=== PATIENT | female | born 1970 | race Caucasian/White ===

== ENCOUNTER → 2017-09-02 12:17 | Outpatient (CLI) | payer OTHER, SELFPAY ==
--- NOTE | 2017-09-02 12:20 | BI_ITS ---
MAMMOGRAPHY - BILATERAL SCREENING 3-D ROSA SYNTHESIS REASON FOR EXAM: Female, 47 years old. Bilateral Screening 3-D tomosynthesis PERTINENT HISTORY: No significant family history. TECHNIQUE: 2-D mammograms and 3-D Rosa synthesis of the breast (s) were performed. CAD was performed. COMPARISON: March 27, 2016. FINDINGS: The breast composition is heterogeneously dense that can obscure small breast masses. No dense spiculated masses or suspicious microcalcifications are identified. No architectural distortion is identified. There is no skin thickening or retraction. There has been no significant change since the prior study. BI/SCREENING MAMM (CAD), BILAT IMPRESSION: No mammographic signs of malignancy. Routine yearly mammograms recommended. ASSESSMENT CATEGORY: BIRADS Category 1: Negative. A letter regarding these results will be sent to the patient by the facility within 30 days. FOLLOW UP RECOMMENDATION: Yearly follow up mammogram recommended. (A) Approximately 10% of breast cancers are not detected by mammography. A normal mammogram should not delay biopsy of a clinically suspicious abnormality. Electronically Signed: Tim Soria MD at 7:52 EDT , Service support ,
== END ==
PROVIDERS: Family Provider Nurse Practitioner Family; PCP Nurse Practitioner Family; Visit Provider Nurse Practitioner Family
DX: Z12.31 Encounter for screening mammogram for malignant neoplasm of breast (principal)
CPT/HCPCS: 77063; 77067

== ENCOUNTER → 2022-12-21 | Outpatient (CLI) | payer OTHER, SELFPAY ==
[2022-12-21 17:44] LABS: Hemoglobin 13.2 g/dL (12.0-15.0); Mean Corp Hgb Conc 31.4 g/dL (32-36); Mean Corpuscular Hgb 29.1 pg (27.0-32.0); Mean Corpuscular Volume 92.5 fL (81-99); Platelet Count 302 K/mm3 (150-450); RBC Distribution Width CV 12.8 % (11.6-14.6); RBC Distribution Width SD 43.4 fl (35.1-43.9); Red Blood Count 4.54 M/mm3 (4.2-5.4); White Blood Count 8.1 K/mm3 (4.4-11.0)
[2022-12-21 18:11] LABS: Erythrocyte Sedimentation Rate 7 mm/hr (0-30)
[2022-12-21 18:16] LABS: CRP 5.87 mg/L (0.0-3.0); Rheumatoid Factor < 10.0 IU/mL (<15)
[2022-12-23 12:09] LABS: ANTINUCLEAR ANTIBODIES DIRECT Negative (Negative)
[2022-12-23 13:08] LABS: CCP IgG Antibodies 3 units (0-19)
== END | disposition home or self-care (01) ==
PROVIDERS: PCP Nurse Practitioner Family; Referring Provider Podiatrist; Visit Provider Podiatrist
DX: M79.671 Pain in right foot (principal); M79.672 Pain in left foot
CPT/HCPCS: 36415; 85027; 85652; 86038; 86140; 86200; 86225; 86235; 86431

== ENCOUNTER → 2024-03-31 | Outpatient (CLI) | payer OTHER, SELFPAY ==
[2024-03-31 15:41] LABS: Absolute Lymphocyte Count 1.98 X10^3/uL (0.83-4.51); Absolute Neutrophil Count 4.5 X10^3/uL (2.0-7.7); Basophil# 0.04 X10^3/uL; Basophil% 0.6 % (0-1); Eosinophil# 0.14 X10^3/uL; Hematocrit 41.4 % (37-47); Lymphocyte # 1.98 X10^3/ul (0.83-4.51); Lymphocyte % 27.7 % (19-41); Mean Corp Hgb Conc 31.4 g/dL (32-36); Mean Corpuscular Hgb 28.8 pg (27.0-32.0); Mean Corpuscular Volume 91.6 fL (81-99); Mean Platelet Vol. 9.6 fl (6.2-12.0); Monocyte# 0.49 X10^3/uL; Monocyte% 6.9 % (0-10); NRBC Flagged by Analyzer 0 % (0-5); Neutrophil # 4.48 X10^3/uL (2.7-7.7); Neutrophil % 62.7 % (47-70); Platelet Count 276 K/mm3 (150-450); RBC Distribution Width SD 40.8 fl (35.1-43.9); Red Blood Count 4.52 M/mm3 (4.2-5.4); White Blood Count 7.1 K/mm3 (4.4-11.0)
[2024-03-31 16:21] LABS: Vitamin D,25 Hydroxy 52.6 ng/mL
[2024-03-31 16:44] LABS: ALB/GLOB Ratio 1.1 RATIO (0.9-2.4); AST(SGOT) 17 U/L (15-37); Alanine Aminotransfer ALT/SGPT 22 U/L (13-56); Albumin, Serum 3.7 g/dL (3.2-5.0); Alkaline Phosphatase 77 U/L (45-117); Anion Gap 8 (5-15); BUN 13 mg/dL (7-18); BUN/Creat Ratio 18.4 RATIO (10-20); Chloride 106 mmol/L (98-107); Cholesterol 175 mg/dL (200); Creatinine, Serum 0.71 mg/dL (0.55-1.02); EST Glomerular Filtration Rate 91 mL/min (>60); Est Glom Filt Rate - Afr Amer 111 mL/min (>60); Globulin 3.5 g/dL (2.2-4.2); Glucose 91 mg/dL (74-106); High Density Lipoprotein 57 mg/dL; Potassium 3.7 mmol/L (3.5-5.1); Protein, Total 7.2 g/dL (6.4-8.2); Sodium Level 140 mmol/L (136-145); Triglycerides 67 mg/dL; Very Low Density Lipoprotein 13 mg/dL (5-40)
== END | disposition home or self-care (01) ==
LOC: MFPLAB 11:54
PROVIDERS: PCP Nurse Practitioner Family; Referring Provider Family Medicine; Visit Provider Family Medicine
DX: Z13.1 Encounter for screening for diabetes mellitus (principal); Z13.220 Encounter for screening for lipoid disorders; R53.83 Other fatigue
CPT/HCPCS: 36415; 80053; 80061; 82306; 84443; 85025

== ENCOUNTER 2024-06-06 08:11 | Day surgery (SDC) | payer OTHER, SELFPAY ==
[2024-06-06] VITALS (8 sets, daily range): BP systolic 111–149; BP diastolic 71–93; PULSE 60–78; RESP 12–16; TEMP 36.2–36.7; O2SAT 96–98; BMI 24.9
--- NOTE | 2024-06-06 09:04 | H&P.OPEN ---
HPI - General HPI Narrative KALIE LUCIANO, is a 54 F who presents for surveillance colonoscopy. Her last colonoscopy was 5 years ago and a polyp was removed. She denies abdominal pain or blood in stool. She denies family history of colon cancer. [facility] Medical History (Updated 06/06/24 @ 09:[address] Red Carlton MD) Wears contact lenses Wears glasses Post-menopausal Arthritis Easy bruising Migraine headache Non-smoker Personal history of colonic polyps Home Medications ?Medication ?Instructions ?Recorded ?Last Taken ?Type NK 04/11/24 Unknown History Allergy/AdvReac Type Severity Reaction Status Date / Time No Known Allergies Allergy Verified 06/06/24 08:36 Family History (Updated 04/11/24 @ 11:27 by Meghan Aguilar) Father Cancer Surgical History (Updated 06/02/24 @ 11:56 by Latisha Mayers) Hx of appendectomy Hx of colonoscopy Social History (Updated 04/11/24 @ 11:28 by Meghan Aguilar) household members: spouse number of children: 2 current occupational status: employed current occupation: Self Smoking Status: Never smoker alcohol intake: current alcohol intake frequency: holidays/special occasions only Alcohol type: wine and hard liquor substance use type: does not use Past Medical/Surgical History Planned Operation Planned Operative Procedure(s): CSCOPE OA Previous Hospitalizations/Surgeries HX Hospitalizations: No Any Problems With Anesthesia: No You/Your Family Experience Fever (Hyperthermia) With Anes: No Cholinesterase deficiency: No Cardiovascular Hx Hypertension: No Respiratory Hx Sleep Apnea: No Hx Respiratory Tract Infection/Cold (presently): No Do You Snore Loudly (louder than talking or can be heard): No Do You Often Feel Tired/ Fatigued/ Sleepy Dring Daytime?: No Has Anyone Observed You Stop Breathing During Sleep?: No Result (for STOP score): Negative Smoking Status: Never smoker Neurological Does patient have nerve stimulator: No Reproduction : No Miscellaneous Recent Exposure to Contagious Disease: No Allergies No Known Allergies Allergy (Verified 06/06/24 08:36) Discharge Is Pt Admitted From a [facility], or a Retirement: No After D/C, Where Do you Plan to Go: Return Home Vital Signs Vital Signs Vital Signs: 06/06/24 08:37 06/06/24 08:37 Temperature 98.1 F Temperature Source Temporal Pulse Rate 78 Respiratory Rate 12 Respiratory Pattern Normal Blood Pressure 149/93 H Blood Pressure Mean 111 Blood Pressure Source Monitor Blood Pressure Position Semi-Fowlers Blood Pressure Location Left Arm Pulse Ox 97 Oxygen Delivery Method Room Air Weight Weight: 154 lb 5.177 oz Body Mass Index (BMI) 24.9 Physical Exam Const alert and oriented x3 HEENT normocephalic Eyes PERRL Resp normal respiratory effort and normal air movement Cardio regular rate and regular rhythm GI soft to palpation, non-tender and non-distended Extremity normal to inspection Assessment & Plan Assessment/Plan (1) Personal history of colonic polyps: PLAN: I explained endoscopy in detail to the patient. I explained the risks including but not limited to stroke or heart attack with anesthesia, perforation of the GI tract, bleeding, infection. I explained that any of these could necessitate further emergency surgery. The patient understands and all questions were answered sufficiently. The patient wishes to proceed with procedure. Red Carlton MD Pager: [facility] [address] [place] [address] [address] [place] [address] Office: Surgery Risks - Colonoscopy Risks Include but are not Limited To: Risks include but are not limited to: Bleeding, perforation requiring further surgery, inability to complete colonoscopy requiring barium enema.
--- NOTE | 2024-06-06 09:18 | PCM.PRE.AN2 ---
ASA Classification* ASA Classification ASA Classification: 2 Assessment & Plan Anesthesia* Anesthesia Assessment Anesthesia Assessment: Discussed sedation and/or anesthesia options, risks, benefits, and alternatives with patient/parents/legal guardian/POA. Questions invited. The patient/parents/legal guardian/POA seems to understand and agrees to proceed with anesthesia plan. Reviewed the physical assessment, medical history, allergy history and patient home medications list prior to surgery/procedure/anesthetic and documented any changes. Performed airway and anesthesia risk assessments. Anesthesia Type Anesthesia Type: MAC History Source History Obtained from:: Patient Anesthesia Focused Assessment* Temperature: 98.1 F Pulse Rate: 78 Blood Pressure: 149/93 Respiratory Rate: 12 Pulse Ox: 97 Oxygen Delivery Method: Room Air Airway Assessment Mouth opens: >3 cm Mallampati Score: II Neck Range of motion (ROM): Full ROM Focused Labs Anesthesia Preop lab: CBC WBC 7.1 K/mm3 (4.4-11.0) 03/31/24 11:54 RBC 4.52 M/mm3 (4.2-5.4) 03/31/24 11:54 Hgb 13.0 g/dL (12.0-15.0) 03/31/24 11:54 Hct 41.4 % (37-47) 03/31/24 11:54 Plt Count 276 K/mm3 (150-450) 03/31/24 11:54 CHEMISTRY Potassium 3.7 mmol/L (3.5-5.1) 03/31/24 11:54 Sodium 140 mmol/L (136-145) 03/31/24 11:54 BUN 13 mg/dL (7-18) 03/31/24 11:54 Creatinine 0.71 mg/dL (0.55-1.02) 03/31/24 11:54 Glucose 91 mg/dL (74-106) 03/31/24 11:54 TSH 1.090 uIU/mL (0.358-3.740) 03/31/24 11:54 COAG Pre-Assessment Diagnosis/Proposed Procedure Planned Operative Procedure(s): CSCOPE OA Anesthesia History Anesthesia History - steamer gum candy: Anesthesia History - steamer gum candy Hx Hospitalization No 06/06/24 09:06 Any Problems With Anesthesia No 06/06/24 09:06 Cholinesterase deficiency No 06/06/24 09:06 You/Your Family Experience No 06/06/24 09:06 fever (hyperthermia) with Relationship Recent Exposure to Contagious No 06/06/24 09:06 Disease Does patient have nerve No 06/06/24 09:06 stimulator Patient instructed to have device shut off --Does patient have Pacemaker No 06/06/24 08:37 or ICD? When Was Last Pacemaker Check QUESTION #4 FULL TEXT: You/Your Family Experience fever (hyperthermia) with Anesthesia Last Oral Intake Last Oral intake: Last Oral Intake NPO since 05:00 06/06/24 08:37 Meds taken in AM with sips of water? Meds patient instructed to take am of surgery PONV PONV - steamer gum candy: PONV - steamer gum candy Female Yes 06/02/24 11:51 HX of Motion Sickness Yes 06/02/24 11:51 HX of N/V After Surgery No 06/02/24 11:51 Non-Smoker Yes 06/02/24 11:51 Duration of Surgery greater No 06/02/24 11:51 than 60 minutes Number of Risk Factors 3 06/02/24 11:51 PONV Score Moderate Risk 06/02/24 11:51 Height & Weight Height & Weight: Anesthesia: Height & Weight Height 5 ft 6 in 06/06/24 08:37 Weight: 70 kg 06/06/24 08:37 Body Mass Index (BMI) 24.9 06/06/24 08:37 Respiratory Assessment Respiratory Assessment - steamer gum candy: Respiratory Tract Infection Hx - steamer gum candy Hx Respiratory Tract Infection No 06/06/24 09:06 STOP Sleep Apnea STOP Sleep Apnea - steamer gum candy: STOP Sleep Apnea - steamer gum candy Hx Hypertension No 06/06/24 09:06 Hx Sleep Apnea No 06/06/24 09:06 CPAP BIPAP Do you snore loudly (louder No 06/06/24 09:06 than talking or can be heard Do you often feel tired/ No 06/06/24 09:06 fatigued/ sleepy during daytime? Has anyone observed you stop No 06/06/24 09:06 breathing during sleep? STOP Results Negative 06/06/24 09:06 QUESTION #5 FULL TEXT : Do you snore loudly (louder than talking or can be heard through closed doors)? Tobacco Use History Tobacco Use History - steamer gum candy: Tobacco Use History - steamer gum candy Tobacco Use Smoking Status Never smoker 06/06/24 09:06 Hx Tobacco Use No 06/02/24 11:51 Years Smoking Packs Smoked per Day Smoking Cessation Date was within the last 15 years Hx Smoking Cessation Date Hx Smoking Cessation Counseling Hematologic Medial History Hematologic Hx - steamer gum candy: Hematologic Medical Hx - documentation engineer Hx of Blood Transfusion No 06/02/24 11:51 Hx of Transfusion in last 3 No 06/02/24 11:51 Months Date of Last Transfusion (if within last 3 months) Ever experience any problems No 06/02/24 11:51 with transfusion(s)? Specify any problems Hx of Preganancy in last 3 No 06/02/24 11:51 Months Nurse Filling Out Transfusion DSCHRIBER 06/02/24 11:51 & Questions: Date: 06/02/24 06/02/24 11:51 Time: 11:53 06/02/24 11:51 Patient unable to answer at this time (ie. confused, unrespo /Reproduction History /Reproductive History - steamer gum candy: /Reproductive Hx- steamer gum candy Hx Now No 06/06/24 09:06 Gestational Age (in weeks): EDC: Hx Hx Para Hx Section SAB No 06/02/24 11:51 PFSH Medical History (Updated 06/06/24 @ 09:[address] Red Carlton MD) Wears contact lenses Wears glasses Post-menopausal Arthritis Easy bruising Migraine headache Non-smoker Personal history of colonic polyps Home Medications ?Medication ?Instructions ?Recorded ?Last Taken ?Type NK 04/11/24 Unknown History Allergy/AdvReac Type Severity Reaction Status Date / Time No Known Allergies Allergy Verified 06/06/24 08:36 Family History (Updated 04/11/24 @ 11:27 by Meghan Aguilar) Father Cancer Surgical History (Updated 06/02/24 @ 11:56 by Latisha Mayers) Hx of appendectomy Hx of colonoscopy Social History (Updated 04/11/24 @ 11:28 by Meghan Aguilar) household members: spouse number of children: 2 current occupational status: employed current occupation: Self Smoking Status: Never smoker alcohol intake: current alcohol intake frequency: holidays/special occasions only Alcohol type: wine and hard liquor substance use type: does not use Review of Systems (Anesthesia) ROS Narrative System reviewed and no additional complaints, except as documented.
--- NOTE | 2024-06-06 09:43 | OP.CCLET_ITS ---
06/06/2024 Mary Bolivar Md Re : Colonoscopy procedure for Samantha Kelley Dear Katt This procedure was performed on Thursday, June 06, 2024. My impressions and recommendations are as follows: Impressions : - The entire examined colon is normal on direct and retroflexion views. - No specimens collected. Recommendations : - Discharge patient to home. - Resume previous diet. - Continue present medications. - Repeat colonoscopy in 10 years for screening purposes. My findings are described in the full procedure note, which is enclosed. If I can be of further assistance, please feel free to contact me at Doctor phone number(s): , Work: . Sincerely, Red Carlton MD 06/06/2024 9:42:32 AM This report has been signed electronically.
--- NOTE | 2024-06-06 09:43 | OP.COLON_ITS ---
Patient Name: Samantha Kelley Procedure Date: 06/06/2024 9:02 AM Date of : 1970 Age: 54 Procedure: Colonoscopy Indications: High risk colon cancer surveillance: Personal history of colonic polyps Providers: Red Carlton MD Referring MD: Mary Bolivar Md Medicines: Propofol per Anesthesia Patient Profile: This is a 54 year old female. Refer to note in patient chart for documentation of history and physical. Last Colonoscopy: 5 years ago. Complications: No immediate complications. Procedure: Pre-Anesthesia Assessment: - Prior to the procedure, a History and Physical was performed, and patient medications and allergies were reviewed. The patient's tolerance of previous anesthesia was also reviewed. The risks and benefits of the procedure and the sedation options and risks were discussed with the patient. All questions were answered, and informed consent was obtained. Prior Anticoagulants: The patient has taken no anticoagulant or antiplatelet agents. After reviewing the risks and benefits, the patient was deemed in satisfactory condition to undergo the procedure. After I obtained informed consent, the scope was passed under direct vision. Throughout the procedure, the patient's blood pressure, pulse, and oxygen saturations were monitored continuously. The Colonoscope was introduced through the anus and advanced to the cecum, identified by appendiceal orifice and ileocecal valve. The colonoscopy was performed without difficulty. The patient tolerated the procedure well. The quality of the bowel preparation was good. The ileocecal valve, appendiceal orifice, and rectum were photographed. Scope In: 9:28:58 AM Scope Withdrawal Time 0 hours 6 minutes 39 seconds Scope Out: 9:40:30 AM Total Procedure Duration Time 0 hours 11 minutes 32 seconds Findings: The entire examined colon appeared normal on direct and retroflexion views. Impression: - The entire examined colon is normal on direct and retroflexion views. - No specimens collected. Recommendation: - Discharge patient to home. - Resume previous diet. - Continue present medications. - Repeat colonoscopy in 10 years for screening purposes. Procedure Code(s): --- Professional --- 27421, Colonoscopy, flexible; diagnostic, including collection of specimen(s) by brushing or washing, when performed (separate procedure) Diagnosis Code(s): --- Professional --- Z86.010, Personal history of colonic polyps CPT copyright 2021 [employer]. All rights reserved. The codes documented in this report are preliminary and upon head grinder review may be revised to meet current compliance requirements. Red Carlton MD 06/06/2024 9:42:32 AM This report has been signed electronically. Number of Addenda: 0 Note Initiated On: 06/06/2024 9:02 AM
--- NOTE | 2024-06-06 09:46 | PCM.POST.ANE ---
Anesthesia: Postop Eval I Current Vital Signs Temperature: 97.6 F Pulse Rate: 72 Blood Pressure: 120/81 Respiratory Rate: 16 Pulse Ox: 98 Assessment Airway patent: Yes Spontaneous unlabored respirations: Yes nausea: No Vomiting: No Anesthesia Complication: No Fluid Hydration Crystalloid volume administer (ml): 30 Total IV fluid infused: 30 Progress Note Anesthesia document: Postop Eval 1 completed: Yes
--- NOTE | 2024-06-06 22:38 | POSTOPAN2_ITS ---
Anesthesia Postop Eval I Sum Postop Eval Completion status Anesthesia document: Postop Eval 1 completed: Yes Anesthesia Postop Eval I Summary Anesthesia Postop Eval I Summary: Anesthesia Postop Eval I: Assessment Summary Airway patent Yes 06/06/24 09:46 [email or web address] Spontaneous unlabored Yes 06/06/24 09:46 [email or web address] respirations Mental status nausea No 06/06/24 09:46 [email or web address] Vomiting No 06/06/24 09:46 [email or web address] Anesthesia Postop Eval I: Fluid Summary Crystalloid volume administer 30 06/06/24 09:46 [email or web address] (ml) Colloids volume administered ( ml) Blood Product volume administered (ml) Total IV fluid infused 30 06/06/24 09:46 [email or web address] Anesthesia Postop Eval I: Summary Notes Anesthesia Complication No 06/06/24 09:46 [email or web address] Anesthesia Complication Comment: Post-operative progress note Anesthesia: Postop Eval II Evaluation Mental status: Awake and Calm Pain Level: 0 nausea: No Vomiting: No Complications Anesthesia Complication: No
--- NOTE | 2024-06-06 22:38 | PCM.POSTANE2 ---
Anesthesia Postop Eval I Sum Postop Eval Completion status Anesthesia document: Postop Eval 1 completed: Yes Anesthesia Postop Eval I Summary Anesthesia Postop Eval I Summary: Anesthesia Postop Eval I: Assessment Summary Airway patent Yes 06/06/24 09:46 MAINTENANCE [email or web address] Spontaneous unlabored Yes 06/06/24 09:46 MAINTENANCE [email or web address] respirations Mental status nausea No 06/06/24 09:46 MAINTENANCE [email or web address] Vomiting No 06/06/24 09:46 MAINTENANCE [email or web address] Anesthesia Postop Eval I: Fluid Summary Crystalloid volume administer 30 06/06/24 09:46 [email or web address] (ml) Colloids volume administered ( ml) Blood Product volume administered (ml) Total IV fluid infused 30 06/06/24 09:46 MAINTENANCE [email or web address] Anesthesia Postop Eval I: Summary Notes Anesthesia Complication No 06/06/24 09:46 MAINTENANCE [email or web address] Anesthesia Complication Comment: Post-operative progress note Anesthesia: Postop Eval II Evaluation Mental status: Awake and Calm Pain Level: 0 nausea: No Vomiting: No Complications Anesthesia Complication: No
== END 2024-06-06 10:13 | disposition home or self-care (01) ==
LOC: EN 08:12 → AC 08:13
PROVIDERS: PCP Family Medicine; Referring Provider Family Medicine; Visit Provider Surgery
PROC: 0DJD8ZZ Inspection of Lower Intestinal Tract, Via Natural or Artificial Opening Endoscopic (ICD-10-PCS; CPT 45378; principal; 2024-06-06 09:10)
DX: Z12.11 Encounter for screening for malignant neoplasm of colon (principal); Z86.0100 Personal history of colon polyps, unspecified
CPT/HCPCS: 45378; A4216

== ENCOUNTER → 2024-10-25 | Outpatient (CLI) | payer OTHER, SELFPAY ==
--- NOTE | 2024-10-25 13:38 | RAD_ITS ---
PROCEDURE: ANKLE MIN 3 VIEWS 10/25/2024 REASON FOR EXAM: PAIN TECHNIQUE: ANKLE MIN 3 VIEWS COMPARISON: None. FINDINGS: Bones: No fracture Joints: Intact Soft tissues: Mild lateral ankle soft tissue thickening of the lateral malleolus Other: RAD/Ankle min 3 Views IMPRESSION: No acute bony process. Reading [facility]
== END | disposition home or self-care (01) ==
LOC: MTRAD 13:37
PROVIDERS: PCP Family Medicine; Referring Provider Physician Assistant; Visit Provider Physician Assistant
DX: M25.571 Pain in right ankle and joints of right foot (principal)
CPT/HCPCS: 73610